=== PATIENT | female | born 1945 | race Caucasian/White ===

== ENCOUNTER → 2017-01-27 | Outpatient (CLI) | payer MEDICARE, OTHER ==
[~2017-01-27] MED LIST: ALDACTONE50 MG PO; AMARYL4 MG PO; ASPIRIN LO-DOSE81 MG PO; COSENTYX P150 MG/1 M SUB-Q; CPAP INH; DURAGESIC 50MC50 MCG TOP; FEOSOL325 MG PO; FLEXERIL10 MG PO; FLONASE 50 MCG/16 GM NOSE; GLUCOPHAGE1000 MG PO; HYDROCODON-ACE1 EAC6 PO; JANUVIA50 MG PO; LASIX40 MG PO; LEVAQUIN750 MG PO; LYRICA 100MG C100 MG PO; MOBIC15 MG PO; MYCOSTATIN CREA30 GM TOP; NORCO 5-325 MG1 TAB PO; PRINIVIL OR ZES10 MG PO; PROAIR RESPICL90 MCG INH; TOPROL XL 5050 MG PO; TYLENOL325 MG PO; ZAROXOLYN5 MG PO
== END | disposition disaster alternative care site (69) ==
LOC: GPOC 01-25 14:00
PROC: 3E0T33Z Introduction of Anti-inflammatory into Peripheral Nerves and Plexi, Percutaneous Approach (ICD-10-PCS; principal; 2017-01-27)
PROC: 3E0T3BZ Introduction of Anesthetic Agent into Peripheral Nerves and Plexi, Percutaneous Approach (ICD-10-PCS; 2017-01-27)
DX: M54.16 Radiculopathy, lumbar region (principal); M54.5 Low back pain
CPT/HCPCS: J1040

== ENCOUNTER → 2017-03-24 | Outpatient (CLI) | payer MEDICARE, OTHER | END | disposition disaster alternative care site (69) | LOC: GOPD 03-22 → GRAD 13:19 → GOPD 14:00 | PROC: 3E0S33Z Introduction of Anti-inflammatory into Epidural Space, Percutaneous Approach (ICD-10-PCS; principal; 2017-03-24) | PROC: 3E0S3BZ Introduction of Anesthetic Agent into Epidural Space, Percutaneous Approach (ICD-10-PCS; 2017-03-24) | DX: M47.26 Other spondylosis with radiculopathy, lumbar region (principal); M48.06 Spinal stenosis, lumbar region; R26.2 Difficulty in walking, not elsewhere classified | CPT/HCPCS: J1040 ==